=== PATIENT | female | born 1975 | race Caucasian/White ===

== ENCOUNTER → 2017-05-29 | Outpatient (CLI) | payer BC ==
[~2017-05-29] MED LIST: LEVOXYL0.05 MG PO; MOTRIN 600600 MG/TAB PO; PERCOCET 325 MG1 TA2 PO; PRENATAL1 TA3 PO
== END ==
LOC: MC.RAD 07:00
DX: Z12.31 Encounter for screening mammogram for malignant neoplasm of breast (principal)

== ENCOUNTER → 2018-07-10 | Outpatient (CLI) | payer BC | LOC: MC.RAD 06:53 | DX: Z12.31 Encounter for screening mammogram for malignant neoplasm of breast (principal); N63.14 Unspecified lump in the right breast, lower inner quadrant ==

== ENCOUNTER → 2018-07-11 | Outpatient (CLI) | payer BC | LOC: MC.RAD 13:22 | DX: N63.10 Unspecified lump in the right breast, unspecified quadrant (principal) ==

== ENCOUNTER 2018-10-23 08:45 | Outpatient (RCR) | payer BC | END 2018-11-19 | disposition home or self-care (01) | LOC: MKS.ESL.PT | DX: M54.2 Cervicalgia (principal); M54.9 Dorsalgia, unspecified ==

== ENCOUNTER → 2019-01-15 | Outpatient (CLI) | payer BC | LOC: MC.RAD 12:58 | DX: N63.0 Unspecified lump in unspecified breast (principal) | CPT/HCPCS: G0279 ==

== ENCOUNTER → 2019-08-09 | Outpatient (CLI) | payer BC | LOC: MC.RAD 07:26 | DX: Z12.31 Encounter for screening mammogram for malignant neoplasm of breast (principal); N63.10 Unspecified lump in the right breast, unspecified quadrant | CPT/HCPCS: G0279 ==

== ENCOUNTER → 2020-01-21 | Outpatient (CLI) | payer BC ==
[~2020-01-21] MED LIST changes: +ADVIL200 MG PO; +CLARITIN-D 10 M1 T24 PO; +FLONASE NASAL S16 GM NS
== END ==
LOC: LIGHT 13:58
DX: Z02.89 Encounter for other administrative examinations (principal)

== ENCOUNTER 2020-01-31 15:30 | Outpatient (RCR) | payer BC | END 2020-04-08 | disposition home or self-care (01) | LOC: MKS.ESL.PT | DX: M25.562 Pain in left knee (principal) ==

== ENCOUNTER → 2020-04-30 | Outpatient (CLI) | payer BC ==
[~2020-04-30] VITALS: Ht 166.4 cm; Wt 127.5 kg
[2020-04-30 13:04] VITALS: BP 136/84; PULSE 60
== END ==
LOC: LIGHT 02-06 11:50
DX: E66.01 Morbid (severe) obesity due to excess calories (principal); Z68.42 Body mass index [BMI] 45.0-49.9, adult; I10 Essential (primary) hypertension; M72.2 Plantar fascial fibromatosis
CPT/HCPCS: G0463

== ENCOUNTER 2020-05-20 14:00 | Outpatient (RCR) | payer BC | END 2020-05-21 14:12 | disposition home or self-care (01) | LOC: MKS.ESL.PT 14:00 | DX: M25.562 Pain in left knee (principal) ==

== ENCOUNTER → 2020-06-11 | Outpatient (CLI) | payer BC ==
[~2020-06-11] VITALS: Ht 166.4 cm; Wt 127.9 kg
[2020-06-11 13:08] VITALS: BP 136/64; PULSE 72
== END ==
LOC: LIGHT 10:40
DX: E66.01 Morbid (severe) obesity due to excess calories (principal); Z68.42 Body mass index [BMI] 45.0-49.9, adult; I10 Essential (primary) hypertension; F50.81 Binge eating disorder
CPT/HCPCS: G0463

== ENCOUNTER → 2020-08-06 | Outpatient (CLI) | payer BC ==
[~2020-08-06] VITALS: Ht 166.4 cm; Wt 126.8 kg
[2020-08-06 11:02] VITALS: BP 138/86; PULSE 64
== END ==
LOC: LIGHT
DX: E66.01 Morbid (severe) obesity due to excess calories (principal); Z68.42 Body mass index [BMI] 45.0-49.9, adult; F50.81 Binge eating disorder; I10 Essential (primary) hypertension
CPT/HCPCS: G0463

== ENCOUNTER → 2020-08-10 | Outpatient (CLI) | payer BC | LOC: MC.RAD 11:30 | DX: Z12.31 Encounter for screening mammogram for malignant neoplasm of breast (principal) ==

== ENCOUNTER → 2021-09-06 | Outpatient (CLI) | payer BC | LOC: MC.RAD 09:41 | DX: Z12.31 Encounter for screening mammogram for malignant neoplasm of breast (principal) ==